=== PATIENT | male | born 1955 | race Caucasian/White ===

== ENCOUNTER 2019-03-01 10:11 | Day surgery (SDC) | payer MEDICARE, BC ==
[~2019-03-01] VITALS: Ht 172.7 cm; Wt 86.9 kg
[~2019-03-01 10:11] MED LIST: BUPIVACAINE/PF 0.25% ONE; DIPH1TAB6 PO; EPINEPHRINE 1 MG/ML, 1ML ONE; GABA300C10 PO; HYDR-3245 PO; LIDOCAINE 1%-EPI 1:100K, 30ML ONE
[2019-03-01] MEDS ORDERED: FENTANYL PF 250 MCG/5ML ONE (10:14)
[2019-03-01] MEDS ORDERED: MIDAZOLAM 1 MG/ML, 2ML ONE (10:14)
[2019-03-01] MEDS ORDERED: LACTATED RINGERS 1,000 ML IV SCH (10:36)
[2019-03-01] MEDS ORDERED: SCOPOLAMINE PATCH, 1.5MG PATCH.TD72 TD ONE (11:00)
[2019-03-01] MEDS ORDERED: GABAPENTIN 300 MG CAPSULE PO ONE (11:00)
[2019-03-01] MEDS ORDERED: ACETAMINOPHEN 500 MG TABLET PO ONE (11:00)
[2019-03-01 11:07] VITALS: BP 146/79
[2019-03-01] MEDS ORDERED: ROCURONIUM 10 MG/ML,10ML ONE (11:18)
[2019-03-01] MEDS ORDERED: DEXAMETHASONE 4 MG/ML, 1ML ONE (11:18)
[2019-03-01] MEDS ORDERED: ONDANSETRON 2MG/ML, 2ML ONE (11:18)
[2019-03-01] MEDS ORDERED: SUCCINYLCHOLINE 20 MG/ML, 10ML ONE (11:18)
[2019-03-01] MEDS ORDERED: CEFAZOLIN 1,000 MG ONE (11:18)
[2019-03-01] MEDS ORDERED: PROPOFOL 10 MG/ML, 20ML ONE (11:18)
[2019-03-01] MEDS ORDERED: PROMETHAZINE 25 MG/ML, 1ML IV PRN (12:00)
[2019-03-01] MEDS ORDERED: LABETALOL 5MG/ML, 20ML IV PRN (12:00)
[2019-03-01] MEDS ORDERED: METOCLOPRAMIDE 5 MG/ML, 2ML IV PRN (12:00)
[2019-03-01] MEDS ORDERED: KETOROLAC 30 MG/1 ML IV PRN (12:00)
[2019-03-01] MEDS ORDERED: ONDANSETRON 2MG/ML, 2ML IVPush PRN (12:00)
[2019-03-01] MEDS ORDERED: ALBUTEROL SULFATE 2.5 MG/3 ML NPPB PRN (12:00)
[2019-03-01] MEDS ORDERED: OXYcodone 5 MG/5 ML ORAL.SOL UDC PO PRN (12:00)
[2019-03-01] MEDS ORDERED: hydrALAzine 20 MG/ML, 1ML IV PRN (12:00)
[2019-03-01] MEDS ORDERED: MEPERIDINE/PF 25MG/ML,1ML ONE (13:35)
[2019-03-01] MEDS: MEPERIDINE/PF 25MG/0.5ML IVPush PRN ×2 (13:37→13:46)
[2019-03-01] MEDS ORDERED: HYDROmorphone 2 MG/ML, 1ML ONE (13:40)
[2019-03-01] MEDS ORDERED: KETOROLAC 30 MG/1 ML ONE (13:40)
[2019-03-01] MEDS ORDERED: OXYcodone 5 MG/5 ML ORAL.SOL UDC ONE (13:40)
[2019-03-01] MEDS: HYDROmorphone 1 MG/ML, 1ML INJ IV PRN ×4 (13:44→14:24)
[2019-03-01] MEDS ORDERED: FENTANYL PF 100 MCG/2ML ONE ×2 (13:48→14:10)
[2019-03-01] MEDS: FENTANYL PF 100 MCG/2ML IV PRN ×4 (13:50→14:19)
== END 2019-03-01 16:20 | disposition home or self-care (01) ==
LOC: OUT 10:11 → EDSTATUS 13:45 → OUT 16:20
PROVIDERS: ATTEND Orthopaedic Surgery
DX: S46.011A Strain of muscle(s) and tendon(s) of the rotator cuff of right shoulder, initial encounter (principal); S46.111A Strain of muscle, fascia and tendon of long head of biceps, right arm, initial encounter; S43.431A Superior glenoid labrum lesion of right shoulder, initial encounter; M75.41 Impingement syndrome of right shoulder; M19.011 Primary osteoarthritis, right shoulder; M75.01 Adhesive capsulitis of right shoulder; M94.211 Chondromalacia, right shoulder; M70.21 Olecranon bursitis, right elbow; G47.33 Obstructive sleep apnea (adult) (pediatric); Z79.891 Long term (current) use of opiate analgesic; Z79.899 Other long term (current) drug therapy; Z88.8 Allergy status to other drugs, medicaments and biological substances; Z91.041 Radiographic dye allergy status; V00.121A Fall from non-in-line roller-skates, initial encounter; Y93.89 Activity, other specified; Y92.89 Other specified places as the place of occurrence of the external cause; Y99.8 Other external cause status
CPT/HCPCS: 29823; 29824; 29826; 29827; 29828; 64415; 93005; C1713; C1763; J0171; J0330; J0690; J1100; J1170; J1885; J2175; J2250; J2405; J2704; J3010; J3490; J7120